=== PATIENT | female | born 1950 | race Caucasian/White ===

== ENCOUNTER → 2017-01-06 | Outpatient (CLI) | payer MEDICARE, OTHER | LOC: MW.CHPS 08:00 | PROVIDERS: ATTEND Physician Assistant | DX: L82.1 Other seborrheic keratosis (principal); L57.0 Actinic keratosis; D22.9 Melanocytic nevi, unspecified; L81.4 Other melanin hyperpigmentation | CPT/HCPCS: 17000; 17110; 99202 ==

== ENCOUNTER 2017-08-20 06:27 | Day surgery (SDC) | payer MEDICARE, OTHER ==
[2017-08-19 16:28] LABS: CHLORIDE,CL 108 mmol/L (98-110); SODIUM,NA 141 mmol/L (136-146)
[~2017-08-20 06:27] MED LIST: Sodium Chloride 0.9% 10 ML Syringe FLUSH PRN; Sodium Chloride 0.9% 2.5 ML Syringe FLUSH PRN; ceFAZolin 2 GM in Premix Bag 1 BAG IV ONE
[2017-08-20] MEDS: Lactated Ringers 1,000 ML IV SCH ×3 (06:49→18:25)
--- NOTE | 2017-08-20 07:03 | PCM.PREANE ---
Preanesthetic Assessment - Anesthesia/Transfusion/Family Hx Anesthesia History: Prior Anesthesia Without Reaction Family History of Anesthesia Reaction: No Transfusion History: No Prior Transfusion(s) Intubation History: Unknown - Review of Systems General: No Symptoms Pulmonary: No Symptoms Cardiovascular: No Symptoms Gastrointestinal: No Symptoms Neurological: No Symptoms Other: Reports: None - Physical Assessment NPO Status Date: 08/19/17 NPO Status Time: 22:00 O2 Sat by Pulse Oximetry: 98 Respiratory Rate: 16 Vital Signs: Last Vital Signs Temp 37.2 C 08/20/17 06:45 Pulse 61 08/20/17 06:45 Resp 16 08/20/17 06:45 BP 125/75 08/20/17 06:45 Pulse Ox 98 08/20/17 06:45 Height: 1.65 m Weight: 87.997 kg ASA Class: 2 Mental Status: Alert & Oriented x3 Airway Class: Mallampati = 2 Dentition: Reports: Normal Dentition Thyro-Mental Finger Breadths: 3 Mouth Opening Finger Breadths: 3 ROM/Head Extension: Limited/Partial Lungs: Clear to Auscultation, Normal Respiratory Effort Cardiovascular: Regular Rate, Regular Rhythm - Lab Values: Laboratory Last Values WBC 6.93 K/uL (4.0-11.0) 08/19/17 15:53 RBC 4.77 M/uL (4.30-5.90) 08/19/17 15:53 Hgb 13.8 g/dL (12.0-16.0) 08/19/17 15:53 Hct 41.6 % (36.0-46.0) 08/19/17 15:53 MCV 87.2 fL (80.0-98.0) 08/19/17 15:53 MCH 28.9 pg (27.0-32.0) 08/19/17 15:53 MCHC 33.2 g/dL (31.0-37.0) 08/19/17 15:53 RDW Std Deviation 43.3 fl (28.0-62.0) 08/19/17 15:53 RDW Coeff of Patience 14 % (11.0-15.0) 08/19/17 15:53 Plt Count 211 K/uL (150-400) 08/19/17 15:53 MPV 11.30 fL (7.40-12.00) 08/19/17 15:53 Nucleated RBC % 0.0 /100WBC 08/19/17 15:53 Nucleated RBCs # 0 K/uL 08/19/17 15:53 Sodium 141 mmol/L (136-146) 08/19/17 15:53 Potassium 4.4 mmol/L (3.5-5.1) 08/19/17 15:53 Chloride 108 mmol/L (98-110) 08/19/17 15:53 Carbon Dioxide 25 mmol/L (21-31) 08/19/17 15:53 BUN 20 mg/dL (6.0-23.0) 08/19/17 15:53 Creatinine 0.8 mg/dL (0.6-1.5) 08/19/17 15:53 Est Cr Clr Drug Dosing 59.72 mL/min 08/19/17 15:53 Estimated GFR (MDRD) > 60.0 ml/min 08/19/17 15:53 Glucose 95 mg/dL (60-110) 08/19/17 15:53 Calcium 9.5 mg/dL (8.8-10.8) 08/19/17 15:53 HCG, Qual NEGATIVE (NEG) 08/19/17 15:53 Blood Type O POSITIVE 08/19/17 15:53 Antibody Screen NEGATIVE 08/19/17 15:53 - Allergies Allergies/Adverse Reactions: Allergies Allergy/AdvReac Type Severity Reaction Status Date / Time Penicillins Allergy Rash Verified 03/01/15 15:24 - Blood Blood Available: No - Anesthesia Plan Pre-Op Medication Ordered: None - Acknowledgements Anesthesia Type Planned: General Anesthesia Pt an Appropriate Candidate for the Planned Anesthesia: Yes Alternatives and Risks of Anesthesia Discussed w Pt/Guardian: Yes Pt/Guardian Understands and Agrees with Anesthesia Plan: Yes PreAnesthesia Questionnaire Other HEENT History: hx ryley laser eye surgery for retinal tears Cardiovascular History: Reports: None Respiratory History: Reports: None Gastrointestinal History: Reports: Colon Polyp, Other (See Below) Other Gastrointestinal History: occasional reflux Genitourinary History: Reports: None, Urinary Incontinence, Other (See Below) ( vaginal prolapse) 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: Musculoskeletal History: Reports: Other (See Below) Other Musculoskeletal History: muscular back pain at bedtime, 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 Neurological History: Reports: None Psychiatric History: Reports: None Endocrine/Metabolic History: Reports: Hypothyroidism, Obesity/BMI 30+ Other Endocrine/Metabolic History: herb's disease Hematologic History: Reports: None Immunologic History: Reports: None Oncologic (Cancer) History: Reports: None Dermatologic History: Reports: None - Past Surgical History Head Surgeries/Procedures: Reports: None HEENT Surgical History: Reports: Adenoidectomy, Cataract Surgery, Tonsillectomy , Other (See Below) Other HEENT Surgeries/Procedures: eye surgery clarity vitreous left eye GI Surgical History: Reports: Colonoscopy Female Surgical History: Reports: Tubal Ligation Musculoskeletal Surgical History: Reports: Arthroscopic Knee (with medial meniscus repair) - SUBSTANCE USE Smoking Status *Q: Never Smoker Tobacco Use Within Last Twelve Months: No Recreational Drug Use History: No - HOME MEDS Home Medications: Home Meds Aspirin [[place] Aspirin] 81 mg PO DAILY 03/01/15 [History] Gluc HCl/Csa/Edgar Hy/Hyalur Ac [Glucosamine Chondroitin] 1 tab PO DAILY [History] Levothyroxine Sodium [Synthroid] 125 mcg PO DAILY 03/01/15 [History] Cholecalciferol (Vitamin D3) [Vitamin D3] 1,000 units PO DAILY 08/17/17 [History ] Juice Plus Fiber Liquid 1 dose PO ASDIRECTED 08/17/17 [History] - CURRENT (IN HOUSE) MEDS Current Meds: Current Medications Lactated Ringer's (Ringers, Lactated) 1,000 mls @ 125 mls/hr IV ASDIRECTED [facility] Last Admin: 08/20/17 06:49 Dose: 125 mls/hr Sodium Chloride (Saline Flush) 10 ml FLUSH ASDIRECTED PRN PRN Reason: Keep Vein Open Sodium Chloride (Saline Flush) 2.5 ml FLUSH ASDIRECTED PRN PRN Reason: Keep Vein Open Discontinued Medications Cefazolin Sodium/Dextrose 2 gm (/ Premix) 50 mls @ 100 mls/hr IV ONETIME ONE Stop: 08/19/17 09:38
[2017-08-20] MEDS ORDERED: Propofol 200 MG/20 ML SDV ONE (07:21)
[2017-08-20] MEDS ORDERED: Lidocaine 2% 5 ML SDV ONE (07:21)
[2017-08-20] MEDS ORDERED: fentaNYL 100 MCG/2 ML SDV ONE (07:21)
[2017-08-20] MEDS ORDERED: Ondansetron 4 MG/2 ML SDV ONE (07:21)
[2017-08-20] MEDS ORDERED: Rocuronium 10 MG/ML 10 ML Syringe ONE (07:21)
[2017-08-20] MEDS ORDERED: Dexamethasone 4 MG/ML 5 ML MDV ONE (07:22)
[2017-08-20] MEDS ORDERED: Midazolam 1 MG/ML 2 ML SDV ONE (07:22)
[2017-08-20] MEDS ORDERED: diphenhydrAMINE 50 MG/ML SDV ONE (07:22)
[2017-08-20] MEDS ORDERED: HYDROmorphone 2 MG/ML Syringe ONE (07:22)
[2017-08-20] MEDS ORDERED: Scopolamine 1.5 MG Transdermal Patch TRDERM PRN (07:37)
[2017-08-20] MEDS ORDERED: Fluorescein 5 ML Vial ONE (07:41)
[2017-08-20] MEDS ORDERED: Acetaminophen 1,000 MG in Premix Bag 1 BAG IV SCH (07:45)
[2017-08-20] MEDS ORDERED: fentaNYL 100 MCG/2 ML SDV IVPUSH PRN (08:34)
[2017-08-20] MEDS ORDERED: Acetaminophen/oxyCODONE 325-5 MG Tab PO PRN (09:50)
[2017-08-20] MEDS ORDERED: Ketorolac 30 MG/ML SDV IVPUSH ONE (09:50)
[2017-08-20] MEDS ORDERED: Ketorolac 30 MG/ML SDV IVPUSH PRN (09:50)
[2017-08-20] MEDS ORDERED: Morphine 4 MG/ML Syringe IVPUSH PRN (09:50)
[2017-08-20] MEDS ORDERED: Promethazine 25 MG/ML SDV IM PRN (09:50)
--- NOTE | 2017-08-20 09:56 | PCM.OPNOTE ---
- General Post-Op/Procedure Note Date of Surgery/Procedure: 08/20/17 Operative Procedure(s): TVH, Ant.repair,TVT,cysto Pre Op Diagnosis: Pelvic relaxation Post-Op Diagnosis: Same Anesthesia Technique: General ET Tube Primary Surgeon: Van Coates Beauty Therapist: Cande Alcazar EBL in mLs: 500 Complications: None Condition: Good
[2017-08-20] MEDS: Morphine 2 MG/ML Syringe IVPUSH PRN ×3 (13:13→20:33)
--- NOTE | 2017-08-20 13:54 | OR ---
SURGEON: Van Coates MD DATE OF PROCEDURE: PREOPERATIVE DIAGNOSES: Pelvic relaxation, mainly prolapse of the uterus and significant cystocele. POSTOPERATIVE DIAGNOSIS: Pelvic relaxation, mainly prolapse of the uterus and significant cystocele. OPERATIONS PERFORMED: Total vaginal hysterectomy, attempted removal of the ovary, but they are out of site and [place] culdoplasty for apical suspension and anterior repair with Alyssa plication, Solyx TVT for stress incontinence and cystoscopy. DATA ENTRY SUPERVISOR: LETICIA Jordan ANESTHESIA: General endotracheal intubation, Jamia Wiley and Dr. Munson. ESTIMATED BLOOD LOSS: 500 mL. COMPLICATIONS: None. FINDINGS: Prolapse of the uterus, mainly significant cystocele. The patient had a good rectal support and good posterior vaginal support. PROCEDURE IN DETAIL: The patient was brought to the OR, properly identified, and after adequate level of general anesthesia, the patient was placed in lithotomy position, prepped and draped in sterile fashion as usual. Straight catheter was used to empty the bladder and then circular incision in the vaginal mucosa around the cervix was done and then the posterior cul-de-sac was entered posteriorly. The perineum and the vagina tied posteriorly and held for further identification. The short weighted speculum replaced with an extending long weighted speculum. The uterosacral ligament was identified from both sides, clamped with a curved Zeppelin, transected, and suture ligated with 2-0 Vicryl pop-off. The same thing done with the cardinal ligament and then the cervicovesical space entered anteriorly and then the anterior cul-de-sac was entered with the Metzenbaum scissor. The bladder was retracted completely away from the operative field and then the broad ligament was clamped with curved Zeppelin, transected, suture ligated with 2-0 Vicryl pop-off and the uterine vessel suture ligated at this step. The uterus was delivered posteriorly and the superior pedicle clamped with 90-degree Zeppelin, transected on both sides. Uterus was removed and the superior pedicle was tied with free tie twice. I attempted to remove the ovary. However, the ovaries, both of them deep in the pelvis, were very difficult to remove, so I elected not to do that. However, the right was within reach, so I did right salpingectomy. Next, inspection of the operative field was done. There was no oozing. No bleeding. The uterosacral ligament was anchored at 3 and 9 o'clock for added vaginal support and Huston culdoplasty twice was done to anchor the uterosacral ligament again to the back of the vagina for apical support. Once we did that, then the vaginal cuff was closed with 2-0 Vicryl interrupted suture. Next, attention was paid to the anterior vaginal wall and that was infiltrated with copious amount of normal saline and incised from the midline from the vaginal vault to the urethra and the vagina was dissected laterally from the bladder. Once we did that, the endopelvic fascia was identified from both sides and I was able to approximate that to support the bladder with 3-0 Vicryl continuous sutures. Once did that, the Solyx TVT anchor was in place to elevate the urethrovesical angle. After that, the vaginal cuff was closed with 2-0 Vicryl continuous interlocking for hemostasis. Once we finished with that and as while we doing that, we asked the anesthesia people to give the patient fluorescein and then cystoscopy was performed. The bladder was intact. Both ureteric orifices were seen with the dye coming from both of them. Thus, the patency of both ureters verified. Satisfied with these finding. Carrillo catheter was placed in the bladder for drainage and the procedure ended. Instrument, sponge count was correct. The patient tolerated the procedure well, went to recovery room in stable general condition. PRIMARY SURGEON: SECONDARY SURGEON: REASON DATA ENTRY SUPERVISOR WAS NECESSARY: ROLE OF DATA ENTRY SUPERVISOR: KRYSTIN MUNGUIA /[id number]
[2017-08-20] MEDS: Ondansetron 4 MG/2 ML SDV IVPUSH PRN (16:17)
--- NOTE | 2017-08-20 16:25 | PCM48HPAN ---
Post Anesthesia Note - EVALUATION WITHIN 48HRS OF ANESTHETIC Vital Signs in Normal Range: Yes Patient Participated in Evaluation: Yes Respiratory Function Stable: Yes Airway Patent: Yes Cardiovascular Function Stable: Yes Hydration Status Stable: Yes Pain Control Satisfactory: Yes Nausea and Vomiting Control Satisfactory: Yes Mental Status Recovered: Yes
[2017-08-21] MEDS: Acetaminophen/oxyCODONE 325-5 MG Tab PO PRN ×2 (02:50→09:11)
[2017-08-21 05:38] LABS: CHLORIDE,CL 108 mmol/L (98-110); SODIUM,NA 141 mmol/L (136-146)
[2017-08-21 07:35] VITALS: BP 118/65
[2017-08-21] MEDS: Ondansetron 4 MG/2 ML SDV IVPUSH PRN (10:20)
--- NOTE | 2017-08-21 10:44 | PCM.SURGPN ---
- General Info Date of Service: 08/21/17 Functional Status: Reports: Pain Controlled - Review of Systems General: Reports: No Symptoms HEENT: Reports: No Symptoms Pulmonary: Reports: No Symptoms Cardiovascular: Reports: No Symptoms Gastrointestinal: Reports: No Symptoms Genitourinary: Reports: No Symptoms Musculoskeletal: Reports: No Symptoms Skin: Reports: No Symptoms Neurological: Reports: No Symptoms Psychiatric: Reports: No Symptoms - Patient Data Vitals - Most Recent: Last Vital Signs Temp 37.3 C 08/21/17 07:00 Pulse 86 08/21/17 07:00 Resp 15 08/21/17 07:00 BP 118/65 08/21/17 07:00 Pulse Ox 97 08/21/17 07:00 Weight - Most Recent: 87.997 kg I&O - Last 24 Hours: Intake & Output 08/20/17 08/21/17 08/21/17 22:59 06:59 14:59 Intake Total 2499 Output Total 2700 Balance -201 Lab Results Last 24 Hrs: Laboratory Results - last 24 hr 08/21/17 08/21/17 Range/Units 05:11 05:11 WBC 10.49 (4.0-11.0) K/uL RBC 4.02 L (4.30-5.90) M/uL Hgb 11.6 L (12.0-16.0) g/dL Hct 34.7 L (36.0-46.0) % MCV 86.3 (80.0-98.0) fL MCH 28.9 (27.0-32.0) pg MCHC 33.4 (31.0-37.0) g/dL RDW Std Deviation 42.3 (28.0-62.0) fl RDW Coeff of Patience 13 (11.0-15.0) % Plt Count 219 (150-400) K/uL MPV 10.80 (7.40-12.00) fL Neut % (Auto) 80.3 H (48.0-80.0) % Lymph % (Auto) 11.2 L (16.0-40.0) % [place] % (Auto) 8.4 (0.0-15.0) % Eos % (Auto) 0.0 (0.0-7.0) % Baso % (Auto) 0.1 (0.0-1.5) % Neut # (Auto) 8.4 H (1.4-5.7) K/uL Lymph # (Auto) 1.2 (0.6-2.4) K/uL [place] # (Auto) 0.9 H (0.0-0.8) K/uL Eos # (Auto) 0.0 (0.0-0.7) K/uL Baso # (Auto) 0.0 (0.0-0.1) K/uL Nucleated RBC % 0.0 /100WBC Nucleated RBCs # 0 K/uL Sodium 141 (136-146) mmol/L Potassium 4.6 (3.5-5.1) mmol/L Chloride 108 (98-110) mmol/L Carbon Dioxide 25 (21-31) mmol/L BUN 6 (6.0-23.0) mg/dL Creatinine 0.8 (0.6-1.5) mg/dL Est Cr Clr Drug Dosing 59.72 mL/min Estimated GFR (MDRD) > 60.0 ml/min Glucose 152 H (60-110) mg/dL Calcium 8.9 (8.8-10.8) mg/dL Med Orders - Current: Current Medications Fentanyl (Sublimaze) 50 mcg IVPUSH .Q5MIN PRN PRN Reason: Pain Lactated Ringer's (Ringers, Lactated) 1,000 mls @ 125 mls/hr IV ASDIRECTED [facility] Last Admin: 08/20/17 18:25 Dose: 125 mls/hr Acetaminophen 1,000 mg/ Premix 100 mls @ 400 mls/hr IV .ONETIME [facility] Last Admin: 08/20/17 07:47 Dose: 400 mls/hr Ketorolac Tromethamine (Toradol) 30 mg IVPUSH Q6H PRN PRN Reason: Pain (severe 7-10) Stop: 08/25/17 09:50 Morphine Sulfate (Morphine) 2 mg IVPUSH Q2H PRN PRN Reason: Pain (severe 7-10) Last Admin: 08/20/17 20:33 Dose: 2 mg Morphine Sulfate (Morphine) 4 mg IVPUSH Q2H PRN PRN Reason: Pain (severe 7-10) Ondansetron HCl (Zofran) 4 mg IVPUSH Q6H PRN PRN Reason: Nausea/Vomiting Last Admin: 08/21/17 10:20 Dose: 4 mg Oxycodone/Acetaminophen (Percocet 325-5 Mg) 1 tab PO Q4H PRN PRN Reason: Pain (moderate 4-6) Last Admin: 08/21/17 09:11 Dose: 1 tab Oxycodone/Acetaminophen (Percocet 325-5 Mg) 2 tab PO Q4H PRN PRN Reason: Pain (moderate 4-6) Promethazine HCl (Phenergan) 25 mg IM Q6H PRN PRN Reason: Nausea/Vomiting Scopolamine (Transderm-Scop) 1.5 mg TRDERM .ONCE PRN PRN Reason: Post Op Nausea Last Admin: 08/20/17 07:47 Dose: 1.5 mg Sodium Chloride (Saline Flush) 10 ml FLUSH ASDIRECTED PRN PRN Reason: Keep Vein Open Sodium Chloride (Saline Flush) 2.5 ml FLUSH ASDIRECTED PRN PRN Reason: Keep Vein Open Discontinued Medications Dexamethasone (Dexamethasone) Confirm Administered Dose 20 mg .ROUTE .STK-MED ONE Stop: 08/20/17 07:23 Diphenhydramine HCl (Benadryl) Confirm Administered Dose 50 mg .ROUTE .STK-MED ONE Stop: 08/20/17 07:23 Fentanyl (Sublimaze) Confirm Administered Dose 100 mcg .ROUTE .STK-MED ONE Stop: 08/20/17 07:22 Fluorescein Sodium (Ak-Fluor) Confirm Administered Dose 5 ml .ROUTE .STK-MED ONE Stop: 08/20/17 07:42 Glycopyrrolate () Confirm Administered Dose 1 mg .ROUTE .STK-MED ONE Stop: 08/20/17 08:26 Hydromorphone HCl (Dilaudid) Confirm Administered Dose 2 mg .ROUTE .STK-MED ONE Stop: 08/20/17 07:23 Cefazolin Sodium/Dextrose 2 gm (/ Premix) 50 mls @ 100 mls/hr IV ONETIME ONE Stop: 08/19/17 09:38 Last Admin: 08/20/17 11:31 Dose: Not Given Ketorolac Tromethamine (Toradol) 30 mg IVPUSH ONETIME ONE Stop: 08/20/17 09:51 Last Admin: 08/20/17 10:06 Dose: 30 mg Lidocaine (Xylocaine-Mpf 2%) Confirm Administered Dose 5 ml .ROUTE .STK-MED ONE Stop: 08/20/17 07:22 Midazolam HCl (Versed 1 Mg/Ml) Confirm Administered Dose 2 mg .ROUTE .STK-MED ONE Stop: 08/20/17 07:23 Ondansetron HCl (Zofran) Confirm Administered Dose 4 mg .ROUTE .STK-MED ONE Stop: 08/20/17 07:22 Propofol (Diprivan 20 Ml) Confirm Administered Dose 200 mg .ROUTE .STK-MED ONE Stop: 08/20/17 07:22 Rocuronium [place] (Zemuron) Confirm Administered Dose 100 mg .ROUTE .STK-MED ONE Stop: 08/20/17 07:22 - Exam Wound/Incisions: Healing Well General: Alert, Oriented HEENT: Pupils Equal Neck: Supple Lungs: Clear to Auscultation, Normal Respiratory Effort Cardiovascular: Regular Rate, Regular Rhythm GI/Abdominal Exam: Normal Bowel Sounds, Soft, Non-Tender, No Organomegaly, No Distention, No Abnormal Bruit, No Mass, Pelvis Stable Extremities: Normal Inspection, Normal Range of Motion, Non-Tender, No Pedal Edema, Normal Capillary Refill Skin: Warm, Dry, Intact Neurological: No New Focal Deficit Psy/Mental Status: Alert, Normal Affect, Normal Mood - Problem List Review Problem List Initiated/Reviewed/Updated: Yes - My Orders Last 24 Hours: Active Orders 24 hr Category Date Time Status Patient Status [ADT] Routine ADT 08/20/17 09:50 Active Antiembolic Devices [RC] PER UNIT ROUTINE Care 08/20/17 09:51 Active Notify Provider Vital Signs [RC] ASDIRECTED Care 08/20/17 09:50 Active Oxygen Therapy [RC] ASDIRECTED Care 08/20/17 09:50 Active RT Incentive Spirometry [RC] Q2HWA Care 08/20/17 09:50 Active Up With Assistance [RC] PER UNIT ROUTINE Care 08/20/17 09:50 Active Up ad Makenzie [RC] PER UNIT ROUTINE Care 08/20/17 09:50 Active Vital Signs [RC] PER UNIT ROUTINE Care 08/20/17 09:50 Active Regular Diet [DIET] Diet 08/20/17 Lunch Active Acetaminophen/oxyCODONE [Percocet 325-5 MG] Med 08/20/17 09:50 Active 1 tab PO Q4H PRN Acetaminophen/oxyCODONE [Percocet 325-5 MG] Med 08/20/17 09:50 Active 2 tab PO Q4H PRN Ketorolac [Toradol] Med 08/20/17 09:50 Active 30 mg IVPUSH Q6H PRN Morphine Med 08/20/17 09:50 Active 2 mg IVPUSH Q2H PRN Morphine Med 08/20/17 09:50 Active 4 mg IVPUSH Q2H PRN Ondansetron [Zofran] Med 08/20/17 09:50 Active 4 mg IVPUSH Q6H PRN Promethazine [Phenergan] Med 08/20/17 09:50 Active 25 mg IM Q6H PRN Peripheral IV Discontinue [OM.PC] Routine Oth 08/20/17 09:50 Ordered Sequential Compression Device [OM.PC] Per Unit Routine Oth 08/20/17 09:50 Ordered Resuscitation Status Routine Resus Stat 08/20/17 09:50 Ordered Medication Orders Fentanyl (Sublimaze) 50 mcg IVPUSH .Q5MIN PRN PRN Reason: Pain Lactated Ringer's (Ringers, Lactated) 1,000 mls @ 125 mls/hr IV ASDIRECTED [facility] Last Admin: 08/20/17 18:25 Dose: 125 mls/hr Infusion: 08/20/17 18:17 Dose: 125 mls/hr Admin: 08/20/17 10:17 Dose: 125 mls/hr Infusion: 08/20/17 10:17 Dose: 125 mls/hr Admin: 08/20/17 06:49 Dose: 125 mls/hr Acetaminophen 1,000 mg/ Premix 100 mls @ 400 mls/hr IV .ONETIME [facility] Last Admin: 08/20/17 07:47 Dose: 400 mls/hr Ketorolac Tromethamine (Toradol) 30 mg IVPUSH Q6H PRN PRN Reason: Pain (severe 7-10) Stop: 08/25/17 09:50 Morphine Sulfate (Morphine) 2 mg IVPUSH Q2H PRN PRN Reason: Pain (severe 7-10) Last Admin: 08/20/17 20:33 Dose: 2 mg Admin: 08/20/17 15:28 Dose: 2 mg Admin: 08/20/17 13:13 Dose: 2 mg Morphine Sulfate (Morphine) 4 mg IVPUSH Q2H PRN PRN Reason: Pain (severe 7-10) Ondansetron HCl (Zofran) 4 mg IVPUSH Q6H PRN PRN Reason: Nausea/Vomiting Last Admin: 08/21/17 10:20 Dose: 4 mg Admin: 08/20/17 16:17 Dose: 4 mg Oxycodone/Acetaminophen (Percocet 325-5 Mg) 1 tab PO Q4H PRN PRN Reason: Pain (moderate 4-6) Last Admin: 08/21/17 09:11 Dose: 1 tab Admin: 08/21/17 02:50 Dose: 1 tab Oxycodone/Acetaminophen (Percocet 325-5 Mg) 2 tab PO Q4H PRN PRN Reason: Pain (moderate 4-6) Promethazine HCl (Phenergan) 25 mg IM Q6H PRN PRN Reason: Nausea/Vomiting Scopolamine (Transderm-Scop) 1.5 mg TRDERM .ONCE PRN PRN Reason: Post Op Nausea Last Admin: 08/20/17 07:47 Dose: 1.5 mg Sodium Chloride (Saline Flush) 10 ml FLUSH ASDIRECTED PRN PRN Reason: Keep Vein Open Sodium Chloride (Saline Flush) 2.5 ml FLUSH ASDIRECTED PRN PRN Reason: Keep Vein Open - Assessment Assessment (Free Text/Narrative):: Status post vaginal hysterectomy anterior repair and TVT and cystoscopy postoperative day #1 patient is doing well on regular diet voiding without any problem fully characterize DC there is no vaginal bleeding the patient ambulatory around the bed - Plan Plan (Free Text/Narrative):: Post hysterectomy instructions given to the patient prescription for Percocet 7.5/325 for postoperative pain the patient to come to the office in one week for postoperative checkup
== END 2017-08-21 11:25 | disposition home or self-care (01) ==
LOC: MW.OB 06:27 → MW.SDS 06:27
PROVIDERS: ATTEND Obstetrics & Gynecology
DX: N84.0 Polyp of corpus uteri (principal); N81.4 Uterovaginal prolapse, unspecified; N39.3 Stress incontinence (female) (male); R23.4 Changes in skin texture; Z88.0 Allergy status to penicillin; E03.9 Hypothyroidism, unspecified; E04.1 Nontoxic single thyroid nodule; Z79.82 Long term (current) use of aspirin; Z79.899 Other long term (current) drug therapy; Z98.51 Tubal ligation status; N81.89 Other female genital prolapse; Z01.818 Encounter for other preprocedural examination
CPT/HCPCS: 36415; 57288; 58270; 80048; 84703; 85025; 85027; 86850; 86900; 86901; 88307; A9270; C1781; G0463; J1100; J1170; J1200; J1885; J2250; J2270; J2405; J3010; J7120; 00944; J2704

== ENCOUNTER 2021-09-06 08:28 | Day surgery (SDC) | payer MEDICARE, OTHER ==
[~2021-09-06 08:28] MED LIST changes: +Lactated Ringers 1,000 ML IV SCH; -Sodium Chloride 0.9% 10 ML Syringe FLUSH PRN; -Sodium Chloride 0.9% 2.5 ML Syringe FLUSH PRN; -ceFAZolin 2 GM in Premix Bag 1 BAG IV ONE
--- NOTE | 2021-09-06 09:43 | PCM.PREANE ---
Preanesthetic Assessment - Anesthesia/Transfusion/Family Hx Anesthesia History: Prior Anesthesia Without Reaction Transfusion History: No Prior Transfusion(s) Intubation History: Unknown - Review of Systems General: No Symptoms Pulmonary: No Symptoms Cardiovascular: No Symptoms Gastrointestinal: No Symptoms Neurological: No Symptoms Other: Reports: None - Physical Assessment NPO Status Date: 09/06/21 NPO Status Time: 00:00 Vital Signs: Last Vital Signs Temp 97.7 F 09/06/21 08:39 Pulse 74 09/06/21 08:39 Resp 74 H 09/06/21 08:39 BP 131/76 09/06/21 08:39 Pulse Ox 16 L 09/06/21 08:39 Height: 5 ft 5 in Weight: 196 lb ASA Class: 2 Mental Status: Alert & Oriented x3 Airway Class: Mallampati = 2 Dentition: Reports: Normal Dentition Thyro-Mental Finger Breadths: 3 Mouth Opening Finger Breadths: 3 ROM/Head Extension: Full Lungs: Clear to Auscultation, Normal Respiratory Effort Cardiovascular: Regular Rate, Regular Rhythm - Allergies Allergies/Adverse Reactions: Allergies Allergy/AdvReac Type Severity Reaction Status Date / Time Penicillins Allergy Rash Verified 09/02/21 07:26 - Acknowledgements Anesthesia Type Planned: General Anesthesia Pt an Appropriate Candidate for the Planned Anesthesia: Yes Alternatives and Risks of Anesthesia Discussed w Pt/Guardian: Yes Pt/Guardian Understands and Agrees with Anesthesia Plan: Yes PreAnesthesia Questionnaire HEENT History: Reports: Retinal Detachment, Other (See Below) Other HEENT History: hx ryley laser eye surgery for retinal tears Cardiovascular History: Reports: None Respiratory History: Reports: None Gastrointestinal History: Reports: Colon Polyp, Other (See Below) Other Gastrointestinal History: occasional reflux Genitourinary History: Reports: None, Urinary Incontinence, Other (See Below) 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: Musculoskeletal History: Reports: Other (See Below) Other Musculoskeletal History: muscular back pain at bedtime, 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 Neurological History: Reports: None Psychiatric History: Reports: None Endocrine/Metabolic History: Reports: Hypothyroidism, Obesity/BMI 30+ Other Endocrine/Metabolic History: herb's disease Hematologic History: Reports: None Immunologic History: Reports: None Oncologic (Cancer) History: Reports: None Dermatologic History: Reports: None - Infectious Disease History Other Infectious Disease History: positive COVID on 07/03/21 - Past Surgical History Head Surgeries/Procedures: Reports: None HEENT Surgical History: Reports: Adenoidectomy, Cataract Surgery, Tonsillectomy, Other (See Below) Other HEENT Surgeries/Procedures: eye surgery clarity vitreous left eye Cardiovascular Surgical History: Reports: None Respiratory Surgical History: Reports: None GI Surgical History: Reports: Colonoscopy Female Surgical History: Reports: Tubal Ligation Other Female Surgeries/Procedures: cystocele repair Endocrine Surgical History: Reports: None Neurological Surgical History: Reports: None Musculoskeletal Surgical History: Reports: Arthroscopic Knee Oncologic Surgical History: Reports: None Dermatological Surgical History: Reports: None - SUBSTANCE USE Tobacco Use Status *Q: Never Tobacco User Recreational Drug Use History: No - HOME MEDS Home Medications: Home Meds Aspirin [[place] Aspirin EC] 81 mg PO DAILY 03/01/15 [History] Glucosam/Chond/Collagen/Hyalur [Glucosamine Chondroitin] 1 tab PO DAILY 03/01/15 [History] Levothyroxine Sodium [Synthroid] 125 mcg PO DAILY 03/01/15 [History] Cholecalciferol (Vitamin D3) [Vitamin D3] 1,000 units PO DAILY 08/17/17 [History] Juice Plus Fiber Liquid 1 dose PO ASDIRECTED 08/17/17 [History] - CURRENT (IN HOUSE) MEDS Current Meds: Current Medications Lactated Ringer's (Ringers, Lactated) 1,000 mls @ 125 mls/hr IV ASDIRECTED [facility] Last Admin: 09/06/21 08:46 Dose: 125 mls/hr Documented by: Discontinued Medications Lactated Ringer's (Ringers, Lactated) 1,000 mls @ 125 mls/hr IV ASDIRECTED [facility]
[2021-09-06] MEDS ORDERED: ePHEDrine 50 MG/ML SDV ONE (11:08)
[2021-09-06] MEDS ORDERED: fentaNYL 100 MCG/2 ML SDV ONE (11:08)
[2021-09-06] MEDS ORDERED: Glycopyrrolate 0.2 MG/ML SDV ONE (11:08)
[2021-09-06] MEDS ORDERED: Atropine 1 MG/ML SDV ONE (11:08)
[2021-09-06] MEDS ORDERED: Propofol 200 MG/20 ML SDV ONE (11:08)
--- NOTE | 2021-09-06 11:23 | PCM.OPNOTE ---
- General Post-Op/Procedure Note Date of Surgery/Procedure: 09/06/21 Operative Procedure(s): Colonoscopy Pre Op Diagnosis: Personal history of colon polyps. Family history of colon cancer. Post-Op Diagnosis: No evidence of neoplasia. Anesthesia Technique: MAC (ASA II) Primary Surgeon: Nick King Condition: Good Free Text/Narrative:: DICTATION 277008 CPT CODE 39686
--- NOTE | 2021-09-06 11:28 | PCM48HPAN ---
Post Anesthesia Note - EVALUATION WITHIN 48HRS OF ANESTHETIC Vital Signs in Normal Range: Yes Patient Participated in Evaluation: Yes Respiratory Function Stable: Yes Airway Patent: Yes Cardiovascular Function Stable: Yes Hydration Status Stable: Yes Pain Control Satisfactory: Yes Nausea and Vomiting Control Satisfactory: Yes Mental Status Recovered: Yes Vital Signs: Last Vital Signs Temp 98.2 F 09/06/21 11:13 Pulse 83 09/06/21 11:23 Resp 9 L 09/06/21 11:23 BP 101/55 L 09/06/21 11:23 Pulse Ox 96 09/06/21 11:23
--- NOTE | 2021-09-06 11:28 | PCM.POSTAN ---
POST ANESTHESIA ASSESSMENT - MENTAL STATUS Mental Status: Alert, Oriented - VITAL SIGNS Vital Signs: Last Vital Signs Temp 98.2 F 09/06/21 11:13 Pulse 83 09/06/21 11:23 Resp 9 L 09/06/21 11:23 BP 101/55 L 09/06/21 11:23 Pulse Ox 96 09/06/21 11:23 - RESPIRATORY Respiratory Status: Respiratory Rate WNL, Airway Patent, O2 Saturation Stable - CARDIOVASCULAR CV Status: Pulse Rate WNL, Blood Pressure Stable - GASTROINTESTINAL GI Status: No Symptoms - POST OP HYDRATION Hydration Status: Adequate & Stable
[2021-09-06] MEDS ORDERED: Lactated Ringers 1,000 ML IV SCH (11:30)
[2021-09-06 11:32] VITALS: BP 100/61; PULSE 77
--- NOTE | 2021-09-06 17:47 | OR ---
SURGEON: Nick King M.D. DATE OF PROCEDURE: 09/06/2021 OPERATION PERFORMED: Colonoscopy. PRIMARY SURGEON: Nick King M.D. ANESTHESIA: MAC. ASA CLASSIFICATION: II. PREOPERATIVE DIAGNOSES: 1. Personal history of colon polyps. 2. Family history of colon cancer. POSTOPERATIVE DIAGNOSIS: No evidence of neoplasia. DESCRIPTION OF PROCEDURE: The patient was taken to the endoscopy room and positioned on the endoscopy table in the left lateral decubitus position. Time-out was called for appropriate identification of the patient and procedure. Monitored anesthesia care was provided. The colonoscope was inserted into the rectum and advanced with minimal difficulty to the cecum. The cecum was identified by internal landmarks and external pressure. The colonoscope was retroflexed to visualize the ascending colon from below and then straightened and slowly withdrawn. The cecum, ascending colon, hepatic flexure, transverse colon, splenic flexure, descending colon, sigmoid colon, and rectum were very well visualized. No tumors, polyps, diverticula, or angiodysplastic changes were noted anywhere in the lower gastrointestinal tract. Once the colonoscope was withdrawn to the rectum, it was retroflexed to visualize the anal orifice from above. Again, no tumors or polyps were seen and there were no acute hemorrhoidal changes. The colonoscope was then straightened, the rectum aspirated, and the colonoscope removed. The patient tolerated the procedure well and was taken to recovery room in stable condition. LEANDRO MUNGUIA /[id number]
== END 2021-09-06 11:55 | disposition home or self-care (01) ==
LOC: MW.SDS 08:28
PROVIDERS: ATTEND Surgery
DX: Z12.11 Encounter for screening for malignant neoplasm of colon (principal); E66.3 Overweight; E03.9 Hypothyroidism, unspecified; Z79.899 Other long term (current) drug therapy; Z79.890 Hormone replacement therapy; Z80.0 Family history of malignant neoplasm of digestive organs; Z86.010 Personal history of colon polyps; Z88.0 Allergy status to penicillin; Z79.82 Long term (current) use of aspirin; Z98.890 Other specified postprocedural states; Z68.33 Body mass index [BMI] 33.0-33.9, adult; Z86.16 Personal history of COVID-19
CPT/HCPCS: G0105; J0461; J2704; J3010; J3490; J7120